=== PATIENT | female | born 1940 | race Caucasian/White ===

== ENCOUNTER 2017-03-28 06:51 | Day surgery (SDC) | payer MEDICARE ==
[~2017-03-28] VITALS: Ht 165.1 cm; Wt 78.8 kg
[~2017-03-28 06:51] MED LIST: ASPI-555 PO; CALC-724 PO; CARV6.25 PO; MAGN100T5 PO; MVIT PO; SODIUM CHLORIDE 0.9% 1000ML 1,000 ML IV ONE; UBID100C45 PO
[2017-03-28 08:26] LABS: BASOPHILS % (AUTO) 0.8 % (0.0-5.0); EOSINOPHILS % (AUTO) 2.4 % (0.0-8.0); HEMATOCRIT 40.5 % (36-48); LYMPHOCYTES % (AUTO) 23.4 % (21.0-51.0); MEAN CORPUSCULAR HEMOGLOBIN 34.1 pg (27.0-33.0); MEAN CORPUSCULAR VOLUME 97.4 fL (79-99); MONOCYTES % (AUTO) 11.1 % (3.0-13.0); NEUTROPHILS % (AUTO) 62.3 % (40.0-77.0); NUCLEATED RED BLOOD CELLS 0.1 % (0.0-0.19); PLATELET COUNT (AUTO) 107 K/uL (130-400); RED BLOOD CELL COUNT(AUTO) 4.16 MIL/uL (4.00-5.50); RED CELL DISTRIBUTION WIDTH 14.2 % (11.0-15.5); WHITE BLOOD COUNT (AUTO) 5.1 K/uL (4.8-10.8)
[2017-03-28 08:35] LABS: INR 1.09 (0.85-1.15); PROTHROMBIN TIME 11.4 SEC (9.6-11.6)
[2017-03-28 08:41] VITALS: BP 134/70
[2017-03-28 08:47] LABS: CREATININE 0.8 mg/dL (0.5-1.5); POTASSIUM 5.1 mmol/L (3.5-5.1)
[2017-03-28] MEDS ORDERED: KRIL500C PO (08:48)
[2017-03-28 08:49] LABS: ALBUMIN 3.3 g/dL (3.5-5.0); BILIRUBIN,TOTAL 1.4 mg/dL (0.2-1.0); TOTAL PROTEIN, SERUM 7.5 g/dL (6.0-8.3)
[2017-03-28] MEDS ORDERED: LEVOFLOXACIN 500 MG/D5W 100 ML 100 ML IV SCH (09:42)
[2017-03-28] MEDS ORDERED: PROPOFOL 1000 MG/100 ML 100 ML IV ONE (09:46)
== END 2017-03-28 11:43 | disposition home or self-care (01) ==
LOC: ENDO 06:51 → DAH 06:51 → ENDO 11:43
PROVIDERS: ATTEND Internal Medicine
DX: D13.6 Benign neoplasm of pancreas (principal); K80.20 Calculus of gallbladder without cholecystitis without obstruction; E78.5 Hyperlipidemia, unspecified; I10 Essential (primary) hypertension; Z85.3 Personal history of malignant neoplasm of breast; Z96.641 Presence of right artificial hip joint; Z90.11 Acquired absence of right breast and nipple; Z98.49 Cataract extraction status, unspecified eye; Z98.890 Other specified postprocedural states
CPT/HCPCS: 36415; 43238; 80053; 85025; 85610; 86316; 88173; 93005; A4215; A4606; J1956; J2704; J7030 ×2; 43232

== ENCOUNTER → 2017-04-14 | Outpatient (CLI) | payer MEDICARE ==
[~2017-04-14] MED LIST changes: +IOPAMIDOL-370 75 ML VIAL IV ONE; +KRIL500C PO; -SODIUM CHLORIDE 0.9% 1000ML 1,000 ML IV ONE
== END | disposition home or self-care (01) ==
LOC: OIH 09:15
PROVIDERS: ATTEND Internal Medicine Gastroenterology
DX: K86.2 Cyst of pancreas (principal)
CPT/HCPCS: 74170; Q9967; 74178